=== PATIENT | male | born 1960 | race Caucasian/White ===

== ENCOUNTER 2018-03-30 06:08 | Day surgery (SDC) | payer BC, OTHER ==
[~2018-03-30] VITALS: Ht 177.8 cm; Wt 64.8 kg
[2018-03-30] MEDS ORDERED: LACTATED RINGERS 1,000 ML IV SCH (06:58)
[2018-03-30 07:03] VITALS: BP 98/63
[2018-03-30] MEDS ORDERED: ATOR10TA9 PO (07:23)
[2018-03-30] MEDS ORDERED: ASPI-515 PO (07:23)
[2018-03-30] MEDS ORDERED: LISI5TAB7 PO (07:23)
[2018-03-30] MEDS ORDERED: METF850T10 PO (07:23)
[2018-03-30] MEDS ORDERED: FENTANYL PF 100 MCG/2ML ONE (08:02)
[2018-03-30] MEDS ORDERED: MIDAZOLAM 1 MG/ML, 2ML ONE (08:02)
[2018-03-30] MEDS ORDERED: PROPOFOL 50 ML ONE (08:03)
[2018-03-30] MEDS ORDERED: HALOPERIDOL 5 MG/ML IV PRN (09:00)
[2018-03-30] MEDS ORDERED: LABETALOL 5MG/ML, 20ML IV PRN (09:00)
[2018-03-30] MEDS ORDERED: ONDANSETRON 2MG/ML, 2ML IV PRN (09:00)
[2018-03-30] MEDS ORDERED: FENTANYL PF 100 MCG/2ML IV PRN (09:00)
[2018-03-30] MEDS ORDERED: MEPERIDINE/PF 25MG/0.5ML IVPush PRN (09:00)
[2018-03-30] MEDS ORDERED: ACETAMINOPHEN 325 MG TABLET PO PRN (09:00)
[2018-03-30] MEDS ORDERED: OXYcodone 5 MG/5 ML ORAL.SOL UDC PO PRN (09:00)
[2018-03-30] MEDS ORDERED: hydrALAzine 20 MG/ML, 1ML IV PRN (09:00)
[2018-03-30] MEDS ORDERED: HYDROmorphone 2 MG/ML, 1ML IVPush PRN (09:00)
== END 2018-03-30 10:20 | disposition home or self-care (01) ==
LOC: OUT 06:08
PROVIDERS: ATTEND Internal Medicine Gastroenterology
DX: C19 Malignant neoplasm of rectosigmoid junction (principal); I10 Essential (primary) hypertension; E11.9 Type 2 diabetes mellitus without complications; D64.9 Anemia, unspecified; Z95.1 Presence of aortocoronary bypass graft; Z88.1 Allergy status to other antibiotic agents; Z88.8 Allergy status to other drugs, medicaments and biological substances
CPT/HCPCS: 45391; 82962; J2250; J2704; J3010